=== PATIENT | female | born 1985 | race Caucasian/White ===

== ENCOUNTER 2019-01-21 16:03 | Emergency (ER) | payer OTHER ==
[~2019-01-21] VITALS: Ht 162.6 cm; Wt 79.5 kg
[~2019-01-21 16:03] MED LIST: MOTR200T44 PO; PERCOCET PO; no home medications
[2019-01-21] MEDS ORDERED: ONDANSETRON 4 MG ORAL DISINTEGRATING TAB (Q0162 PER 1MG) PO ONE (17:45)
[2019-01-21 17:58] LABS: HEMATOCRIT 39.5 % (36.0-47.0); HEMOGLOBIN 13.5 g/dl (12.0-15.5); MEAN CORPUSCULAR HEMOGLOBIN 32.1 pg (27.0-33.0); MEAN CORPUSCULAR HGB CONC 34.2 g/dl (32.0-36.5); PLATELET COUNT, AUTOMATED 329 10^3/uL (150-450); WHITE BLOOD COUNT 10.5 10^3/uL (4.0-10.0)
[2019-01-21 18:35] LABS: ALBUMIN 3.8 GM/DL (3.2-5.2); ALT/SGPT 20 U/L (12-78); BILIRUBIN,DIRECT 0.2 MG/DL (0.0-0.2); BILIRUBIN,TOTAL 0.9 MG/DL (0.2-1.0); CK-MB VALUE MASS < 1.0 NG/ML (<3.6); CPK CREATINE PHOSPHOKINASE 128 U/L (26-192); LIPASE 242 U/L (73-393); MB/CK RELATIVE INDEX 0.78 (< OR =4); THYROID STIMULATING HORMONE 0.586 uIU/ML (0.358-3.740); TOTAL PROTEIN 6.8 GM/DL (6.4-8.2); TROPONIN I < 0.02 NG/ML (< 0.10)
--- NOTE | 2019-01-21 19:23 | REPVR ---
EXAM: US Duplex Right Lower Extremity Veins, Limited EXAM DATE/TIME: 01/21/2019 7:09 PM CLINICAL HISTORY: 33 years old, female; Pain; Leg, lower; Right; Additional info: Right calf pain TECHNIQUE: Imaging protocol: Real-time Duplex ultrasound of the Right Lower Extremity with 2-D christianson scale, color Doppler flow and spectral waveform analysis. Limited exam was focused on the right lower extremity veins. COMPARISON: No relevant prior studies available. FINDINGS: Right deep veins: Unremarkable. The common femoral, femoral, proximal profunda femoral, popliteal and visualized calf veins are patent without thrombus. Normal Doppler waveforms. Normal compressibility and/or augmentation response. Right superficial veins: Unremarkable. Saphenofemoral junction is patent without thrombus. Soft tissues: Unremarkable. IMPRESSION: No sonographic evidence of deep vein thrombosis. Electronically signed by: Juan Pablo Rivera On 01/21/2019 19:23:23 PM
--- NOTE | 2019-01-21 19:45 | REP ---
Clinical: Shortness of breath. Comparison: 07/04/2006. Technique: PA and lateral. Findings: The mediastinum and cardiac silhouette are normal. The lung summers are clear and without acute consolidation, effusion, or pneumothorax. The skeletal structures are intact and normal. Impression: 1. No acute cardiopulmonary process. Electronically Signed by Nic Orantes MD 01/21/2019 07:36 P
[2019-01-21 20:14] VITALS: BP 140/80
--- NOTE | 2019-01-21 20:28 | ECGEPIP ---
[facility] - ED Test Date: 2019-01-21 Pat Name: CHERYL MARTINEZ Department: Room: - Gender: Female [employer]: macarena : 1985 Requested By: Jessica Saini Order Number: [id number] Reading MD: Trace Hummel Measurements Intervals [place] Rate: 59 P: VA: 136 QRS: 52 QRSD: 76 T: 46 QT: 417 QTc: 416 Interpretive Statements SINUS BRADYCARDIA NO PRIORS FOR COMPARISON Electronically Signed on 01-21-2019 20:27:35 EDT by Trace Hummel
== END 2019-01-21 20:36 | disposition home or self-care (01) ==
LOC: M ED 16:03
DX: R11.0 Nausea (principal); R07.89 Other chest pain; F33.9 Major depressive disorder, recurrent, unspecified; E28.2 Polycystic ovarian syndrome; Z87.09 Personal history of other diseases of the respiratory system
CPT/HCPCS: 36415; 71046; 80047; 80076; 82550; 82553; 83690; 84443; 84484; 84702; 85027; 85379; 93005; 93971; 99284; Q0162